=== PATIENT | male | born 1980 | race Caucasian/White ===

== ENCOUNTER 2018-04-28 09:51 | Emergency (ER) | payer SELFPAY ==
[~2018-04-28] VITALS: Ht 190.5 cm; Wt 99.8 kg
--- NOTE | 2018-04-28 10:15 | PHYS DOC ---
Past History Past Medical History: Other Past Surgical History: Pacemaker, Tonsillectomy Alcohol Use: None Drug Use: Marijuana Adult General Chief Complaint Chief Complaint: DENTAL PROBLEM HPI HPI 37-year-old male presents with right upper and right lower dental pain. The patient has had some tooth decay for some time. In the last week, the pain has gotten worse and he has developed swelling in the right side of his face. He has tried [id number] medications with some relief. At this time, the pain is gone was difficult for him to sleep and his pain medication is not working. Patient recently moved here from [place] and has not established medical insurance. He denies fever or chills. He has no other complaints. Review of Systems Review of Systems Constitutional: Denies fever or chills [] Eyes: Denies change in visual acuity, redness, or eye pain [] HENT: Denies nasal congestion or sore throat. Dental pain [] Respiratory: Denies cough or shortness of breath [] Cardiovascular: No additional information not addressed in HPI [] GI: Denies abdominal pain, nausea, vomiting, bloody stools or diarrhea [] : Denies dysuria or hematuria [] Musculoskeletal: Denies back pain or joint pain [] Integument: Denies rash or skin lesions [] Neurologic: Denies headache, focal weakness or sensory changes [] Endocrine: Denies polyuria or polydipsia [] All other systems were reviewed and found to be within normal limits, except as documented in this note. Allergies Allergies Allergies Coded Allergies Type Severity Reaction Last Updated Verified No Known Drug Allergies 04/28/18 No Physical Exam Physical Exam Constitutional: Well developed, well nourished, no acute distress, non-toxic appearance. [] HENT: Normocephalic, atraumatic, bilateral external ears normal, oropharynx moist, no oral exudates, nose normal. Multiple decaying teeth in the right upper and lower quadrants. Mild swelling of the gums.[] Eyes: PERRLA, EOMI, conjunctiva normal, no discharge. [] Neck: Normal range of motion, no tenderness, supple, no stridor. [] Cardiovascular:Heart rate regular rhythm, no murmur [] Lungs & Thorax: Bilateral breath sounds clear to auscultation [] Abdomen: Bowel sounds normal, soft, no tenderness, no masses, no pulsatile masses. [] Skin: Warm, dry, no erythema, no rash. [] Back: No tenderness, no CVA tenderness. [] Extremities: No tenderness, no cyanosis, no clubbing, ROM intact, no edema. [] Neurologic: Alert and oriented X 3, normal motor function, normal sensory function, no focal deficits noted. [] Psychologic: Affect normal, judgement normal, mood normal. [] Current Patient Data Vital Signs Vital Signs Date Time Temp Pulse Resp B/P (MAP) Pulse Ox O2 Delivery O2 Flow Rate FiO2 04/28/18 09:55 96.8 64 16 97 Room Air EKG EKG [] Radiology/Procedures Radiology/Procedures [] Course & Med Decision Making Course & Med Decision Making Pertinent Labs and Imaging studies reviewed. (See chart for details) The patient does have localized areas of extensive decay in the right upper and lower quadrants. A review of the prescription database does not show any increase for the last 2 years. I have stressed to the patient that I can only give him one prescription for narcotic pain medication#10 [facility] 5/325. He understands this is a one-time deal attempt to get in to a free dental clinic in case it takes a while for him to get insurance. I will also discharge him with 7 days of Augmentin. He is stable for discharge at this time. Dragon Disclaimer Dragon Disclaimer This electronic medical record was generated, in whole or in part, using a voice recognition dictation system. Departure Departure: Referrals: JOLIE STUBBS (PCP) TAQUERIA JARVIS DO Apr 28, 2018 10:15
[2018-04-28] MEDS ORDERED: HYDR-971 PO (10:18)
[2018-04-28] MEDS ORDERED: AMOX1TAB61 PO (10:18)
[2018-04-28 10:30] VITALS: BP 127/89
[2018-04-28] MEDS ORDERED: AMOXICILLIN/K CLAV 875/125MG TABLET. PO ONE (10:30)
[2018-04-28] MEDS ORDERED: HYDROcodone/APAP 5/325MG 1 TAB TABLET PO ONE (10:30)
== END 2018-04-28 10:30 | disposition home or self-care (01) ==
LOC: ER 09:51
DX: K02.9 Dental caries, unspecified (principal)
CPT/HCPCS: 99283

== ENCOUNTER 2018-10-13 07:16 | Emergency (ER) | payer SELFPAY ==
[~2018-10-13] VITALS: Ht 190.5 cm; Wt 99.8 kg
[~2018-10-13 07:16] MED LIST: AMOX1TAB61 PO; HYDR-3165 PO
[2018-10-13 07:29] VITALS: BP 131/111
[2018-10-13] MEDS ORDERED: IV NORMAL SALINE 1,000ML 1,000 ML IV ONE (07:45)
[2018-10-13] MEDS ORDERED: SULF1TAB24 PO (07:46)
[2018-10-13] MEDS ORDERED: CEPH-264 PO (07:46)
[2018-10-13] MEDS ORDERED: IV NORMAL SALINE 100ML 100 ML ONE (07:47)
--- NOTE | 2018-10-13 07:47 | PHYS DOC ---
Past History Past Medical History: Other Past Surgical History: Pacemaker, Tonsillectomy Alcohol Use: None Drug Use: Marijuana Adult General Chief Complaint Chief Complaint: rash HPI HPI 38-year-old male presents with rash on his neck. The patient has erythema and warmth all over the anterior neck. Patient tells me he has been having trouble with this off and on for a couple of months. He was diagnosed at another facility with MRSA and treated with Bactrim. He states that every time he takes the Bactrim it improves when nearly goes away, but then will suddenly just come back "with a vengence". The patient has been using disposable razor to shave and throws them away every day. He has been trying peroxide and alcohol. He came in this morning because it is now very painful. He has some weeping drainage, but no purulent discharge. He denies fever or chills. Review of Systems Review of Systems Constitutional: Denies fever or chills [] Eyes: Denies change in visual acuity, redness, or eye pain [] HENT: Denies nasal congestion or sore throat [] Respiratory: Denies cough or shortness of breath [] Cardiovascular: No additional information not addressed in HPI [] GI: Denies abdominal pain, nausea, vomiting, bloody stools or diarrhea [] : Denies dysuria or hematuria [] Musculoskeletal: Denies back pain or joint pain [] Integument: Rash on neck[] Neurologic: Denies headache, focal weakness or sensory changes [] Endocrine: Denies polyuria or polydipsia [] All other systems were reviewed and found to be within normal limits, except as documented in this note. Allergies Allergies Allergies Coded Allergies Type Severity Reaction Last Updated Verified No Known Drug Allergies 04/28/18 No Physical Exam Physical Exam Constitutional: Well developed, well nourished, no acute distress, non-toxic appearance. [] HENT: Normocephalic, atraumatic, bilateral external ears normal, oropharynx moist, no oral exudates, nose normal. [] Eyes: PERRLA, EOMI, conjunctiva normal, no discharge. [] Neck: Normal range of motion, no tenderness, supple, no stridor. [] Cardiovascular:Heart rate regular rhythm, no murmur [] Lungs & Thorax: Bilateral breath sounds clear to auscultation [] Abdomen: Bowel sounds normal, soft, no tenderness, no masses, no pulsatile masses. [] Skin: Hot, erythematous rash over the anterior neck from the mandible down to the sternal notch. No obvious abscess identified.[] Back: No tenderness, no CVA tenderness. [] Extremities: No tenderness, no cyanosis, no clubbing, ROM intact, no edema. [] Neurologic: Alert and oriented X 3, normal motor function, normal sensory function, no focal deficits noted. [] Psychologic: Affect normal, judgement normal, mood normal. [] EKG EKG [] Radiology/Procedures Radiology/Procedures [] Course & Med Decision Making Course & Med Decision Making Pertinent Labs and Imaging studies reviewed. (See chart for details) The patient has been diagnosed with MRSA in the past. The rash could also be strep. I will cover him for both. We will start with 2 g Rocephin in the ED as well as Bactrim DS. I will discharge him on Keflex and Bactrim. [] Dragon Disclaimer Dragon Disclaimer This electronic medical record was generated, in whole or in part, using a voice recognition dictation system. Departure Departure: Impression: Primary Impression: Cellulitis of neck Disposition: HOME, SELF-CARE Condition: STABLE Referrals: PCP,NO (PCP) Patient Instructions: Cellulitis, [id number] Scripts Cephalexin (KEFLEX) 500 Mg Capsule 1 CAP PO TID for cellulitis for 10 Days, #30 CAP Prov: TAQUERIA JARVIS DO 10/13/18 Sulfamethoxazole/Trimethoprim (BACTRIM DS TABLET) 1 Each Tablet 2 TAB PO BID for cellulitis for 10 Days, #40 TAB Prov: TAQUERIA JARVIS DO 10/13/18 TAQUERIA JARVIS DO Oct 13, 2018 07:47
[2018-10-13] MEDS ORDERED: KETOROLAC 30 MG/ML VIAL. IV ONE (08:00)
[2018-10-13] MEDS ORDERED: SMZ/TMP 800/160MG TABLET. PO ONE ×2 (08:00)
== END 2018-10-13 08:30 | disposition home or self-care (01) ==
LOC: ER 07:16
DX: L03.221 Cellulitis of neck (principal); Z95.0 Presence of cardiac pacemaker; Z86.14 Personal history of Methicillin resistant Staphylococcus aureus infection
CPT/HCPCS: 96365; 96375; 99283; J0696; J1885; J7030

== ENCOUNTER → 2020-03-12 | Outpatient (CLI) | payer OTHER ==
[~2020-03-12] MED LIST changes: +CEPH-264 PO; +SULF1TAB24 PO
== END | disposition home or self-care (01) ==
LOC: LAB 18:01
DX: Z02.83 Encounter for blood-alcohol and blood-drug test (principal)
CPT/HCPCS: 36415

== ENCOUNTER 2020-11-07 03:49 | Emergency (ER) | payer SELFPAY ==
[~2020-11-07] VITALS: Ht 190.5 cm; Wt 109.0 kg
[2020-11-07 04:05] VITALS: BP 167/107
[2020-11-07] MEDS ORDERED: CEPHALEXIN 250 MG CAPSULE ONE (04:12)
[2020-11-07] MEDS ORDERED: CEPH500C PO (04:14)
[2020-11-07] MEDS ORDERED: CEPHALEXIN 250 MG CAPSULE PO ONE (04:15)
--- NOTE | 2020-11-07 04:15 | PHYS DOC ---
Past History Past Medical History: Other Additional Past Medical Histor: MURMUR Past Surgical History: Pacemaker, Tonsillectomy, Other Alcohol Use: None Drug Use: Marijuana Adult General Chief Complaint Chief Complaint: LACERATION/AVULSION HPI HPI Patient is an otherwise healthy 40-year-old male who presents with a finger laceration. States he had just sharpened his tools, including a knife and set him on a counter. States he went to reach for something else and the blade cut his left finger. States he washed it out for about 10 minutes with hydrogen peroxide before coming to the ED. States he is up-to-date on his tetanus vaccination. Denies any other injuries. States he does not really hurt too bad and he quit bleeding shortly after. Review of Systems Review of Systems Review of systems otherwise unremarkable except noted in HPI Allergies Allergies Allergies Coded Allergies Type Severity Reaction Last Updated Verified No Known Drug Allergies 04/28/18 No Physical Exam Physical Exam Constitutional: Well developed, well nourished, no acute distress, non-toxic appearance. [] Skin: Warm, dry, no erythema, no rash. [] Extremities: Patient has an approximately 2 cm linear laceration on the left second digit in between the PIP and DIP. Neurovascular exam intact. Musculoskeletal exam intact. Neurologic: Alert and oriented X 3, normal motor function, normal sensory function, no focal deficits noted. [] Psychologic: Affect normal, judgement normal, mood normal. [] EKG EKG [] Radiology/Procedures Radiology/Procedures [] Heart Score C/O Chest Pain: No Risk Factors: Risk Factors: DM, Current or recent (<one month) smoker, HTN, HLP, family history of CAD, obesity. Risk Scores: Risk Factors: DM, Current or recent (<one month) smoker, HTN, HLP, family history of CAD, obesity. Course & Med Decision Making Course & Med Decision Making Patient is a 40-year-old male who presents with finger laceration Vital signs not concerning. Physical exam noted above. Wound cleaned extensively. No need for suture repair. Dermabond repair done. Started on Keflex in the ED. Advised to follow-up with his primary care in approximately a week for wound check. Gave strict precautions to return to the emergency department. Patient grateful, verbalized understanding and agreed with plan of discharge. [] Dragon Disclaimer Dragon Disclaimer This electronic medical record was generated, in whole or in part, using a voice recognition dictation system. Departure Departure: Impression: Primary Impression: Finger laceration Disposition: 01 DC HOME SELF CARE/HOMELESS Condition: GOOD Referrals: PCP,JOLIE (PCP) SHERYL BURTON MD Patient Instructions: Tissue Adhesive Wound Care Additional Instructions: Please read all the attached information. You can use Tylenol, and ibuprofen as needed at home for pain control. Please keep the area clean and dry as di scussed. Please keep it bandaged as discussed. Please follow-up with your primary care physician to set up a follow-up appointment for wound check in approximately a week to 10 days. Please come back to the emergency department immediately with new or concerning symptoms. Scripts Cephalexin (CEPHALEXIN) 500 Mg Capsule 1 CAP PO TID for laceration for 3 Days, #9 CAP Prov: FUNMILAYO MCKEON MD 11/07/20 FUNMILAYO MCKEON MD Nov 07, 2020 04:15
== END 2020-11-07 04:15 | disposition home or self-care (01) ==
LOC: ER 03:49
DX: S61.211A Laceration without foreign body of left index finger without damage to nail, initial encounter (principal); Z95.0 Presence of cardiac pacemaker; W26.0XXA Contact with knife, initial encounter; Y93.89 Activity, other specified; Y92.89 Other specified places as the place of occurrence of the external cause; Y99.8 Other external cause status
CPT/HCPCS: 12001; 99283

== ENCOUNTER 2021-07-05 14:17 | Emergency (ER) | payer OTHER ==
[~2021-07-05] VITALS: Ht 190.5 cm; Wt 109.0 kg
[~2021-07-05 14:17] MED LIST changes: +CEPH500C PO
[2021-07-05 14:31] VITALS: BP 148/79
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
== END 2021-07-05 15:31 | disposition left against medical advice (07) ==
LOC: ER 14:17
DX: S60.222A Contusion of left hand, initial encounter (principal); R55 Syncope and collapse; V89.2XXA Person injured in unspecified motor-vehicle accident, traffic, initial encounter; Y93.I9 Activity, other involving external motion; Y92.89 Other specified places as the place of occurrence of the external cause; Y99.8 Other external cause status
CPT/HCPCS: 99283